=== PATIENT | female | born 1985 | race African-American/Black ===

== ENCOUNTER 2017-09-05 18:29 | Emergency (ER) | payer MEDICAID ==
[~2017-09-05] VITALS: Ht 167.6 cm; Wt 90.7 kg
[2017-09-05 18:29] VITALS: BP 121/78
[2017-09-05 18:55] LABS: Basophils # (auto) 0 uL; Basophils % (auto) 0.9 % (0.0-2.0); Eosinophils # (auto) 0.2 uL; Eosinophils % (auto) 3.8 % (0.0-7.0); Hematocrit 26.5 % (36.0-46.0); Hemoglobin 7.8 g/dL (12.2-16.2); Lymphocytes # (auto) 1.9 uL; Lymphocytes % (auto) 37.5 % (10.0-50.0); Mean Corpuscular Hemoglobin 16.3 pg (28.0-32.0); Mean Corpuscular Hgb Conc. 29.4 g/dL (32.0-36.0); Mean Corpuscular Volume 55.6 fL (80.0-100.0); Mean Platelet Volume 8.2 fL (6.9-10.8); Monocytes # (auto) 0.6 uL; Monocytes % (auto) 11.6 % (0.0-12.0); Neutrophils # (auto) 2.3 uL; Neutrophils % (auto) 46.2 % (37.0-80.0); Nucleated Red Blood Cells % 0.1 %; Platelet Count (auto) 348 10^3/uL (140-450)
[2017-09-05 18:56] LABS: Red Cell Distribution Width 20.8 % (11.8-14.3)
[2017-09-05 19:09] LABS: Anisocytosis Slight; INR 1.01 (0.9-1.15); Partial Thromboplastin Time 25.6 sec (22.64-33.71); Platelet Estimate Adequate
[2017-09-05 19:10] LABS: Giant Platelets Few; Hypochromia Moderate; Microcytosis Moderate; Ovalocytes FEW
[2017-09-05 19:11] LABS: Albumin 3.6 g/dL (3.4-5.0); Anion Gap 10 (5-15); Aspartate Aminotransferase 16 U/L (15-37); BUN/Creatinine Ratio 7.6; Blood Urea Nitrogen 8 mg/dL (7-18); Carbon Dioxide 22 mmol/L (21-32); Chloride 108 mmol/L (98-107); GFR African American 78 mL/min; GFR Non-African American 64 mL/min; Glucose 108 mg/dL (74-106); Magnesium 2.3 mg/dL (1.6-2.6); Potassium 3.7 mmol/L (3.5-5.1); Sodium 140 mmol/L (136-145)
[2017-09-05 19:19] LABS: Alkaline Phosphatase 95 U/L (45-117); Bilirubin, Total 0.4 mg/dL (0.2-1.0); Calcium 8.3 mg/dL (8.5-10.1); Total Protein 8.3 g/dL (6.4-8.2)
== END 2017-09-06 03:10 | disposition left against medical advice (07) ==
LOC: ER 18:30
DX: R07.9 Chest pain, unspecified (principal); Z53.21 Procedure and treatment not carried out due to patient leaving prior to being seen by health care provider
CPT/HCPCS: 36415; 80053; 83735; 84484; 85025; 85610; 85730; 93005

== ENCOUNTER 2017-12-25 19:57 | Emergency (ER) | payer MEDICAID ==
[~2017-12-25] VITALS: Ht 167.6 cm; Wt 108.9 kg
[2017-12-25 20:20] VITALS: BP 144/85
== END 2017-12-26 01:16 | disposition left against medical advice (07) ==
LOC: ER 19:57
DX: I10 Essential (primary) hypertension (principal); Z53.21 Procedure and treatment not carried out due to patient leaving prior to being seen by health care provider